=== PATIENT | male | born 1995 | race Caucasian/White ===

== ENCOUNTER 2018-10-31 13:01 | Emergency (ER) | payer OTHER, SELFPAY ==
[2018-10-31 13:06] VITALS: BP 153/73; PULSE 67; RESP 16; TEMP 36.6; O2SAT 100
[2018-10-31] MEDS: Ibuprofen 600 MG TAB PO (13:39)
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
[2018-10-31] MEDS: oxyCODONE 5 MG TAB 15 MG PO (16:11)
== END 2018-10-31 16:11 | disposition home or self-care (01) ==
PROVIDERS: Emergency Provider Physician Assistant
DX: S42.022A Displaced fracture of shaft of left clavicle, initial encounter for closed fracture (principal); V18.0XXA Pedal cycle driver injured in noncollision transport accident in nontraffic accident, initial encounter; Y93.55 Activity, bike riding
CPT/HCPCS: 23500; 73000; L3650